=== PATIENT | female | born 1970 | race Caucasian/White ===

== ENCOUNTER → 2020-12-20 09:43 | Outpatient (CLI) | payer OTHER, SELFPAY ==
--- NOTE | ~2020-12-20 | MM_ITS ---
EXAMINATION: MM screening sarahi BI w adina HISTORY: Screening TECHNIQUE: Craniocaudal and mediolateral oblique 3-D tomosynthesis images were obtained and synthetic 2-D images were generated. CAD analysis was submitted and interpreted. COMPARISON: 02/25/2012 BREAST PARENCHYMAL COMPOSITION: There are scattered areas of fibroglandular density. FINDINGS: There is no evidence of suspicious mass, calcification, or architectural distortion to sugg est malignancy in either breast. There has been no suspicious interval change. IMPRESSION: 1. No mammographic evidence of malignancy. 2. Recommend routine screening mammography in one year. BI-RADS Category 1: Negative Reviewed, dictated and finalized at location A.
== END ==
PROVIDERS: PCP Family Medicine Adolescent Medicine; Visit Provider Family Medicine Adolescent Medicine
DX: Z12.31 Encounter for screening mammogram for malignant neoplasm of breast (principal)
CPT/HCPCS: 77063; 77067

== ENCOUNTER 2021-03-22 09:15 | Outpatient (CLI) | payer OTHER, SELFPAY ==
--- NOTE | 2021-03-22 12:00 | NEURO_ITS ---
Impression: # Complains of numbness and pain in hands, left more than right. # Moderated to severe Carpal Tunnel Syndrome, left more than right. # No ulnar neuropathy. # Needle/EMG exam is abnormal in APB bilaterally. Nerve Conduction Studies Anti Sensory Summary Table Stim Site NR Peak (ms) P-T Amp (?V) Site1 Site2 Delta-P (ms) Dist (cm) Javy (m/s) Left Median Anti Sensory (2-3nd Digit) Wrist 5.3 7.9 Wrist 2-3nd Digit 5.3 14.0 26 Wrist 5.4 19.6 Wrist 2-3nd Digit 5.3 14.0 26 Right Median Anti Sensory (2-3nd Digit) NO RESPONSE Wrist NR Wrist 2-3nd Digit 14.0 Wrist NR Wrist 2-3nd Digit 14.0 Left Radial Anti Sensory (Base 1st Digit) Wrist 1.9 27.2 Wrist Base 1st Digit 1.9 0.0 Right Radial Anti Sensory (Base 1st Digit) Wrist 2.1 13.9 Wrist Base 1st Digit 2.1 0.0 Left Ulnar Anti Sensory (5th Digit) Wrist 2.1 77.8 Wrist 5th Digit 2.1 14.0 67 Right Ulnar Anti Sensory (5th Digit) Wrist 2.1 55.9 Wrist 5th Digit 2.1 14.0 67 Motor Summary Table Stim Site NR Onset (ms) O-P Amp (mV) Site1 Site2 Delta-0 (ms) Dist (cm) Javy (m/s) Left Median Motor (Abd Poll Brev) Wrist 6.2 3.9 Elbow Wrist 4.9 29.0 59 Elbow 11.1 3.9 Right Median Motor (Abd Poll Brev) Wrist 5.4 3.2 Elbow Wrist 4.7 27.0 57 Elbow 10.1 3.2 Left Ulnar Motor (Abd Dig Minimi) Wrist 2.1 7.1 A Elbow Wrist 4.7 27.0 57 A Elbow 6.8 6.1 Right Ulnar Motor (Abd Dig Minimi) Wrist 2.1 4.0 A Elbow Wrist 4.7 27.0 57 A Elbow 6.8 3.3 F Wave Studies NR F-Lat (ms) L-R F-Lat (ms) Left Median (Mrkrs) (Abd Poll Brev) 30.59 1.00 Right Median (Mrkrs) (Abd Poll Brev) 29.60 1.00 Left Ulnar (Mrkrs) (Abd Dig Min) 26.37 0.88 Right Ulnar (Mrkrs) (Abd Dig Min) 27.24 0.88 EMG Side Muscle Nerve Root Ins Act Fibs Amp Dur Recrt Comment Right 1stDorInt Ulnar C8-T1 Nml Nml Nml Nml Nml Right Ext Indicis Radial (Post Int) C7-8 Nml Nml Nml Nml Nml Right Ext Digitorum Radial (Post Int) C7-8 Nml Nml Nml Nml Nml Right BrachioRad Radial C5-6 Nml Nml Nml Nml Nml Right PronatorTeres Median C6-7 Nml Nml Nml Nml Nml Right Abd Poll Brev Median C8-T1 Nml Nml Nml >12ms Reduced Left 1stDorInt Ulnar C8-T1 Nml Nml Nml Nml Nml Left Ext Indicis Radial (Post Int) C7-8 Nml Nml Nml Nml Nml Left Ext Digitorum Radial (Post Int) C7-8 Nml Nml Nml Nml Nml Left BrachioRad Radial C5-6 Nml Nml Nml Nml Nml Left PronatorTeres Median C6-7 Nml Nml Nml Nml Nml Left Abd Poll Brev Median C8-T1 Nml Nml Nml >12ms Reduced MTDD
== END 2021-03-22 09:16 | disposition home or self-care (01) ==
PROVIDERS: PCP Family Medicine Adolescent Medicine; Visit Provider Family Medicine Adolescent Medicine
DX: G56.03 Carpal tunnel syndrome, bilateral upper limbs (principal)
CPT/HCPCS: 95886; 95911

== ENCOUNTER 2022-01-04 09:52 | Emergency (ER) | payer OTHER, SELFPAY ==
[2022-01-04] VITALS (16 sets, daily range): BP systolic 114–139; BP diastolic 69–89; PULSE 59–70; RESP 10–19; TEMP 36.8; O2SAT 97–100
--- NOTE | ~2022-01-04 | CT_ITS ---
EXAMINATION: CT brain wo con EXAM DATE: 01/04/2022 10:25 INDICATION: Dizziness. TECHNIQUE: Spiral CT of the head was performed without contrast. Axial, coronal and sagittal images were reviewed. The dose-length product (DLP) for this examination was 605.33 mGy-cm. The exposure w as tailored according to patient size, and iterative reconstruction (ASIR) was used as additional dos e reduction technique. There is no prior study for comparison. FINDINGS: There is no acute intraparenchymal hemorrhage. No evidence of intraparenchymal brain mass lesion. No evidence of acute infarction. There is no mass effect or midline shift. The ventricles are normal in size. There are no extra-axial collections. There are no acute calvarial fractures. T he orbits are unremarkable. Soft tissue is unremarkable. The visualized sinuses and mastoid air sarina ls are well aerated. IMPRESSION: No acute intracranial findings. Reviewed, dictated and finalized at location B.
--- NOTE | ~2022-01-04 | XR_ITS ---
EXAMINATION: XR chest 2V EXAM DATE: 01/04/2022 10:27 INDICATION: Increased SOB. TECHNIQUE: Frontal and lateral projections of the chest obtained and reviewed. Comparison is made to prior examination from 08/21/2018. FINDINGS: The lungs are clear. There are no pleural effusions. The cardiomediastinal silhouette is within normal limits. There is no pneumothorax suspected. The bones and soft tissues are unremarkab le. IMPRESSION: No acute cardiopulmonary findings. Reviewed, dictated and finalized at location B.
--- NOTE | 2022-01-04 10:10 | ECG_ITS ---
Measurements Intervals [place] Rate: 66 P: 50 [place]: 154 QRS: 10 QRSD: 94 T: 46 QT: 427 QTc: 448 Interpretive Statements SINUS RHYTHM BASELINE ARTIFACT NORMAL ECG NO PREVIOUS ECG AVAILABLE FOR COMPARISON Electronically Signed On 01-04-2022 15:44:47 CDT by Hilton Bacon M.D.
--- NOTE | 2022-01-04 10:11 | ED.GENADULT ---
HPI - General Adult General Chief complaint: Shortness of Breath/Dyspnea Stated complaint: htn, dizzy Time Seen by Provider: 01/04/22 09:54 History of Present Illness HPI narrative: 51-year-old female in no distress presents to the emergency room with complaints of dizziness, high blood pressure, shortness of breath. Patient states that she woke up in the middle the night feeling short of breath, use her inhaler twice which resolved her symptoms. Later in the morning, patient was work, and was feeling dizzy and lightheaded. Patient also complaining of sinus congestion postnasal drip frequently clearing her throat. Patient went to the school nurse for her blood pressure was taken twice. Blood pressure readings at that time were 160s/90s. Patient does not have a history of high blood pressure. On presentation to the emergency room, patient is complaining of dizziness and lightheadedness. The breath has since resolved. No other complaints at this time Related Data Home Medications Medication Instructions Recorded Confirmed atorvastatin 40 mg tablet 40 mg PO DAILY 11/01/21 11/01/21 trazodone 50 mg tablet 50 mg PO QHS PRN 11/01/21 11/01/21 Allergies Allergy/AdvReac Type Severity Reaction Status Date / Time clarithromycin Allergy Intermediate Hives Verified 01/04/22 10:04 Penicillins Allergy Mild HIVES Verified 01/04/22 10:04 Review of Systems Review of Systems: CONSTITUTIONAL: Denies fever, chills, or sweats. EYES: Denies visual changes, redness, or discharge. ENT: Denies rhinorrhea, congestion, sore throat, or otalgia. CARDIOVASCULAR: Denies chest pain, palpitations, or edema. RESPIRATORY: Reports shortness of breath GASTROINTESTINAL: Denies abdominal pain, nausea, vomiting, or diarrhea. GENITOURINARY: Denies dysuria or hematuria. SKIN: Denies rash or itching. MUSCULOSKELETAL: Denies back pain, joint pain, or myalgia. NEUROLOGIC: Reports dizziness PSYCHIATRIC: Denies anxiety or depression. PMFSH Surgical History Surgical History History of total left hip arthroplasty 2018 Family History Family History Father Acute myocardial infarction Diabetes mellitus Exam Narrative: GENERAL: Well-appearing, well-nourished, obese and in no acute distress. HEAD: Normocephalic, atraumatic. EYES: PERRLA and EOMI. ENT: Nares clear, no rhinorrhea or epistaxis. Mucous membranes moist. CHEST: Clear to auscultation. No respiratory distress. No wheezes rales or rhonchi HEART: Regular rate and rhythm. No murmur heard. Normal peripheral pulses. ABDOMEN: Soft, nontender, nondistended, normal active bowel sounds. EXTREMITIES: Normal range of motion. No edema. SKIN: Warm, dry, no rash. NEURO: No focal deficits. Alert and oriented x3. PSYCH: Normal mood and affect. Course Vital Signs Vital signs: Vital Signs Temperature 36.8 C 01/04/22 09:57 Pulse Rate 69 01/04/22 09:57 Respiratory Rate 12 01/04/22 09:57 Blood Pressure 139/89 01/04/22 09:57 Pulse Oximetry 100 01/04/22 09:57 Temperature 36.8 C 01/04/22 09:57 Pulse Rate 67 01/04/22 10:30 Respiratory Rate 13 01/04/22 10:30 Blood Pressure 130/82 01/04/22 10:01 Pulse Oximetry 99 01/04/22 10:30 Medical Decision Making [facility] Narrative Medical decision making narrative: 51-year-old female presented the emergency room cute onset of shortness of breath this morning associated with sinus congestion postnasal drip and dizziness. Head CT was negative for any intracranial abnormalities. CBC and CMP unremarkable. Troponin was negative D-dimer negative. Chest x-ray was negative for any acute disease. Patient is likely experiencing dizziness from sinus congestion and a viral URI. Encourage patient to continue taking her albuterol inhaler obtaining some pseudoephedrine pharmacy and resuming her Flonase. Medical Records Medical records review
--- NOTE | 2022-01-04 10:20 | PC.NURSE ---
Patient off unit to radiology for chests xray.
[2022-01-04 10:27] LABS: Basophils Absolute Auto 0.1 K/mm3 (0.0-0.1); Basophils Percent Auto 0.4 % (0.2-1.2); Eosinophils Absolute Auto 0.3 K/mm3 (0-0.3); Eosinophils Percent Auto 2.3 % (0-4.4); Hematocrit 44.2 % (37.0-47.0); Hemoglobin 14.8 g/dL (12.0-15.0); Immature Granulocyte Absolute 0.04 K/mm3 (0.00-0.031); Immature Granulocyte Percent A 0.4 % (0-0.5); Lymphocytes Absolute Auto 3.49 K/mm3 (0.9-3.2); Lymphocytes Percent Auto 31.4 % (18.3-44.2); Mean Corpuscular HGB Conc 33.5 g/dl (32-36); Mean Corpuscular Hemoglobin 31.8 pg (26-34); Mean Corpuscular Volume 95.1 fl (80-100); Mean Platelet Volume 9.1 fl (7.4-10.4); Monocytes Absolute Auto 0.5 K/mm3 (0.1-0.6); Monocytes Percent Auto 4.5 % (2.6-8.5); Neutrophils Absolute Auto 6.8 K/mm3 (1.3-6.7); Platelet Count Result 310 k/mm3 (150-375); Red Blood Count 4.65 M/mm3 (4.2-5.4); Red Cell Distribution Width 12.5 % (11.5-14.5); White Blood Count 11.1 K/mm3 (4.5-10.0)
[2022-01-04 10:39] LABS: Alanine Aminotransferase 57 U/L (4-35); Albumin Level 4.5 g/dL (3.5-5.1); Alkaline Phosphatase 118 U/L (38-126); Anion Gap 12 mmol/L (8-16); Aspartate Amino Transferase 64 U/L (14-36); Bilirubin,Total 0.7 mg/dL (0.2-1.3); Blood Urea Nitrogen 12 mg/dL (7-17); Calcium 8.9 mg/dL (8.4-10.2); Carbon Dioxide 24 mmol/L (22-30); Chloride 103 mmol/L (98-107); Estimated CRCL calculation 115 ml/min; Estimated Glomerular Filt Rate > 60; Glucose 178 mg/dL (65-110); Potassium 3.9 mmol/L (3.4-5.0); Sodium 139 mmol/L (137-145)
[2022-01-04] MEDS: SODIUM CHLORIDE 0.9% IV 500 ML 999 ML IV CONT (10:45)
[2022-01-04] MEDS: ONDANSETRON INJ 4 MG/2 ML VIAL IV PUSH (10:45)
[2022-01-04 10:46] LABS: D Dimer 0.27 ug/mL (<0.48)
[2022-01-04 10:50] LABS: Troponin I < 0.012 ng/mL (0.000-0.034)
== END 2022-01-04 12:24 | disposition home or self-care (01) ==
PROVIDERS: Emergency Provider Nurse Practitioner Family; PCP Family Medicine Adolescent Medicine
DX: B34.9 Viral infection, unspecified (principal); R42 Dizziness and giddiness; Z96.642 Presence of left artificial hip joint
CPT/HCPCS: 36415; 70450; 71046; 80053; 84484; 85025; 85380; 93005; 96361; 96374; 99284; J2405; J7040

== ENCOUNTER 2022-04-04 07:56 | Outpatient (RCR) | payer OTHER, SELFPAY ==
[2022-04-04 08:03] VITALS: BMI 35.2
[2022-04-04 08:10] VITALS: BMI 35.2
== END 2022-05-31 14:22 | disposition home or self-care (01) ==
LOC: ANHDMC 07:56
PROVIDERS: PCP Family Medicine Adolescent Medicine; Visit Provider Family Medicine Adolescent Medicine
DX: E11.9 Type 2 diabetes mellitus without complications (principal); Z71.3 Dietary counseling and surveillance
CPT/HCPCS: 97802

== ENCOUNTER 2023-03-19 09:47 | Outpatient (CLI) | payer OTHER, SELFPAY ==
--- NOTE | ~2023-03-19 | XR_ITS ---
XR hip LT min 2V 03/19/2023 10:17 Indication: Left hip pain Procedure: 2 views left hip Comparison: 02/10/2018 Findings: There are changes of left total hip arthroplasty. Prosthesis well seated. There has been in terval development of exuberant heterotopic ossification lateral to the hip above the greater trochan ter. No acute fracture or traumatic malalignment. 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 Reviewed, dictated and finalized at location L. Impression: 1: Interval development of exuberant heterotopic ossification lateral to the hi p.
--- NOTE | ~2023-03-19 | XR_ITS ---
XR knee LT 3V 03/19/2023 10:17 Indication: Left knee pain Procedure: 3 views left knee Comparison: No prior studies for comparison. Findings: No fracture, subluxation or dislocation. No significant joint effusion. Mild patellofemoral compartment osteoarthritis. No foreign bodies. Impression: 1: Mild patellofemoral osteoarthritis of the left knee. Reviewed, dictated and finalized at location L. Impression: 1: Mild patellofemoral osteoarthritis of the left knee.
== END 2023-03-19 09:48 | disposition home or self-care (01) ==
PROVIDERS: PCP Family Medicine Adolescent Medicine; Visit Provider Nurse Practitioner Family
DX: G89.29 Other chronic pain (principal); M25.552 Pain in left hip; M17.12 Unilateral primary osteoarthritis, left knee
CPT/HCPCS: 73502; 73562

== ENCOUNTER 2025-07-07 14:11 | Outpatient (CLI) | payer OTHER, SELFPAY ==
--- OUTSIDE RECORDS SUMMARY | 2025-07-07 14:17 | XMS_ITS | Clinical Summary ---
Author Organization [facility] Address [address] Attn: Epic Prelude ADT [place] [address] Care Team Providers Care Supervisor [employer] Name Role Phone Unavailable Primary Care Provider Unavailabl e Medications liraglutide, weight loss, (Saxenda) 3 mg/0.5 mL (18 mg/3 mL) Pen Injector INJECT 0.6 MG UNDER THE SKIN ONCE DAILY ON WEEK 1, THEN 1.2 MG DAILY ON WEEK 2, THEN 1.8 MG DAILY ON WEEK 3, THEN 2.4 MG DAILY ON WEEK 4, THEN 3MG UNDER THE SKIN ONCE DAILY THEREAFTER 15 mL 2 01/12/20 23 Active doxycycline hyclate (VIBRAMYCIN) 100 mg capsule TAKE 1 TABLET BY MOUTH BEFORE DENTAL PROCEDURE. 1 Capsule 3 1:26 PM CDT 06/18/20 23 Active promethazine (PHENERGAN) 25 mg tablet Take 1 Tablet (25 mg) by mouth every 6 hours as needed for nausea and vomiting 20 Tablet 3 3:57 PM BOX CUTTER 09/18/20 23 Active venlafaxine (EFFEXOR XR) 75 mg Extended Release 24 hour capsule Take 1 Capsule (75 mg) by mouth daily. 90 Capsule 1 4 11:01 AM CDT 03/10/20 24 Active semaglutide, weight loss, (Wegovy) 0.25 mg/0.5 mL Pen Injector Inject 0.5 mL (0.25 mg) by subcutaneous injection every 7 days. Weeks 1-4 of therapy. 2 mL 06/18/20 24 Active semaglutide, weight loss, (Wegovy) 0.5 mg/0.5 mL Pen Injector Inject 0.5 mL (0.5 mg) by subcutaneous injection every 7 days. Weeks 5-8 of therapy. 2 mL 4 6:36 PM CDT 06/18/20 24 Active albuterol sulfate HFA 90 mcg/actuation aerosol inhaler Inhale 2 puffs by mouth every 4 (four) hours as needed for wheezing or shortness of breath 8.5 Gram 4 11:31 AM BOX CUTTER 08/23/20 24 Active azithromycin (ZITHROMAX) 250 mg tablet TAKE 2 TABLETS (500 MG) BY MOUTH A SINGLE DOSE ON DAY 1, THEN TAKE 1 TABLET ONCE DAILY ON DAYS 2 THRU 5. 6 Tablet 5 2:24 PM BOX CUTTER 11/25/19 25 Active benzonatate (TESSALON) 100 mg capsule Take 1 capsule 3 times a day by oral route as needed for 10 days, for cough. 30 Capsule 11/25/19 25 Active methylPREDNIS olone (MEDROL DOSPACK) 4 mg Tablets, Dose Pack Take as directed on package. 21 Tablet 5 6:09 PM CDT 06/18/20 25 Active predniSONE (DELTASONE) 20 mg tablet Take 60mg daily for 5 days, then take 40mg daily for 5 days, then take 20mg daily for 5 days orally; 30 Tablet 5 3:30 PM CDT 06/25/20 25 Active azithromycin (ZITHROMAX) 250 mg tablet TAKE 2 TABLETS BY MOUTH A SINGLE DOSE ON DAY 1, THEN TAKE 1 TABLET ONCE DAILY ON DAYS 2 THRU 5. 6 Tablet 4 11:31 AM BOX CUTTER 08/23/20 24 025 Discontinued doxycycline hyclate (VIBRAMYCIN) 100 mg capsule Take 1 Capsule (100 mg) by mouth 2 times daily with meals for 7 days. 14 Capsule 5 11:46 AM CDT 06/12/20 25 025 azithromycin (ZITHROMAX) 250 mg tablet TAKE 2 TABLETS BY MOUTH A SINGLE DOSE ON DAY 1, THEN TAKE 1 TABLET ONCE DAILY ON DAYS 2 THRU 5. 6 Tablet 06/18/20 25 025 Discontinued(F ormulary Change) clindamycin HCL (CLEOCIN) 300 mg Capsule Take 1 capsule (300 mg total) by mouth every 6 (six) hours for 10 days 40 Capsule 5 6:09 PM CDT 06/18/20 25 025 Social History Tobacco Use Types Packs/Day Years Used Date Smoking Tobacco: Never Assessed Comments Unknown Sex and Gender Information Value Date Recorded Sex Assigned at Not on file Legal Sex Female 3:27 PM CDT Gender Identity Not on file Sexual Orientation Not on file Plan of Treatment Health Maintenance Due Date Last Done Comments DTAP/TDAP/TD VACCINES (1 - Tdap) 02/22/1991 HEPATITIS B VACCINES (1 of 3 - 19+ 3-dose series) 02/04 HPV/Cotest (21-29) 02/22/1993 CERVICAL CANCER SCREENING 02/22/2002 HPV/Cotest (30-65) 02/22/2002 PAP SMEAR 02/22/2002 BREAST CANCER SCREENING 2012 COLORECTAL SCREENING 02/22/2017 Colorectal Cancer Screening 02/22/2017 FIT-DNA Q 3 years 02/22/2017 FIT/FOBT Q 1 year 02/22/2017 Flex Sig/CT Colonography Q 5 years 02/22/2017 ZOSTER VACCINE (1 of 2) 02/22/2022 INFLUENZA VACCINE (#1) 2025 Insurance RX [employer] RX [employer] Commercial RX [employer] (INTERNAL) [facility] Internal Plans RX [employer] Commercial
--- OUTSIDE RECORDS SUMMARY | 2025-07-07 14:17 | XMS_ITS | Clinical Summary ---
Author Organization [address] lto Address [address] [place] [address] Care Team Providers Care Sandwich Peddler Name Role Phone Hola Kaufman MD Primary Care Prov ider Allergies Active Allergy Reactions Criticality Noted Date Comments Penicillins Unknown 07/18/2023 Medications estradioL (ESTRACE) 1 mg tablet Take 1 tablet (1 mg total) by mouth daily Active traZODone (DESYREL) 50 mg tablet Take 1 tablet (50 mg total) by mouth nightly Active venlafaxine XR (EFFEXOR-XR) 75 mg 24 hr capsule Take 1 capsule (75 mg total) by mouth daily Active ascorbic acid (vitamin C) 100 mg tablet Take 1 tablet (100 mg total) by mouth daily Active calcium carbonate-vitam in D3 1500 mg (600 mg elemental) -200 units per tablet Take 1 tablet by mouth daily Active benzonatate (TESSALON) 100 mg capsuleIndicati ons:Cough Take 1 capsule (100 mg total) by mouth 3 (three) times a day as needed for cough 42 capsule 07/18/20 23 Active Additional Information Patient not taking.Reported on 06/18/2025 albuterol HFA (PROVENTIL HFA,VENTOLIN HFA,PROAIR HFA) 90 mcg/actuation inhalerIndicati ons:Upper respiratory tract infection, unspecified type Inhale 2 puffs every 4 (four) hours as needed for wheezing or shortness of breath 1 each 08/23/20 24 Active azithromycin (ZITHROMAX) 250 mg tabletIndicatio ns:Upper respiratory tract infection, unspecified type Take two tabs first day, then one tab daily x 4 days 6 tablet 08/23/20 24 025 Discontinu ed(Therapy completed) azithromycin (ZITHROMAX) 250 mg tabletIndicatio ns:otitis media Take 2 tablets the first day, then 1 tablet daily for 4 days. 6 tablet 06/18/20 25 025 Discontinu ed(Error) methylPREDNISol one (MEDROL DOSEPACK) 4 mg Dosepack Take as directed on package. 21 tablet 06/18/20 25 025 clindamycin (CLEOCIN) 300 mg capsule Take 1 capsule (300 mg total) by mouth every 6 (six) hours for 10 days 40 capsule 06/18/20 25 025 Active Problems No known active problems Encounters Date Type Department Care Team Description 06/18/2025 5:00 PM CDT Office Visit [facility] [address] [place] [address] Dora Davidson NP Non-recurrent acute suppurative otitis media of left ear without spontaneous rupture of tympanic membrane (Primary Dx) from Last 3 Months Social History Tobacco Use Types Packs/Day Years Used Date Smoking Tobacco: Never Assessed Comments No Sex and Gender Information Value Date Recorded Sex Assigned at Not on file Legal Sex Female 1:14 PM [employer]ER [employer] T[employer]ER Gender Identity Not on file Sexual Orientation Not on file Obstetrics History Last Filed Vital Signs Vital Sign Reading Time Taken Comments Blood Pressure 118/74 06/18/2025 5:00 PM CDT Pulse 76 06/18/2025 5:00 PM CDT Temperature 36.3 C (97.3 F) 06/18/2025 5:00 PM CDT Respiratory Rate 14 06/18/2025 5:00 PM CDT Oxygen Saturation 99% 06/18/2025 5:00 PM CDT Inhaled Oxygen Concentration - - Weight 88.9 kg (196 lb) 06/18/2025 5:00 PM CDT Height 170.2 cm (5' 7) 06/18/2025 5:00 PM CDT Body Mass Index 30.7 06/18/2025 5:00 PM CDT Plan of Treatment Health Maintenance Due Date Last Done Comments Breast Cancer Screening-Mammogram 1972 Colon Cancer Screening-Colonoscopy 1972 Depression Screening 1972 Hepatitis C Screening 1972 Hepatitis B Screening 02/22/1990 Regular Well Visit/Exam 18-64 02/22/1990 DTaP/Tdap/Td Vaccine (1 - Tdap) 02/02/1997 7 Zoster Vaccine (1 of 2) 02/22/2022 Influenza Vaccine (#1) 2025 Pneumococcal vaccine <65 Aged Out No longer eligible based on patient's age to complete this topic Insurance [employer] Member Subscriber Plan / Payer (Ef fective 2024-Present) Name:Brooke Penn Relation to Subscriber:Self Name:Brooke Penn Payer ID:[id number] (NAIC) Type:[employer] H[employer]/PPO Address: [place] [phone] Care Teams Sandwich Peddler Relationship Specialty Start Date End Date Hola Kaufman MD PCP - General 11/20/17
== END 2025-07-07 14:12 | disposition home or self-care (01) ==
LOC: ANHAUDIO 14:11
PROVIDERS: PCP Family Medicine Adolescent Medicine; Visit Provider Otolaryngology
DX: H66.92 Otitis media, unspecified, left ear (principal)
CPT/HCPCS: 92557; 92567

== ENCOUNTER 2025-07-21 15:36 | Outpatient (CLI) | payer OTHER, SELFPAY ==
--- NOTE | ~2025-07-21 | CT_ITS ---
EXAMINATION: CT IAC/mastoids BI wo con DATE: 07/21/2025 16:05 INDICATION: Otitis media, unspecified, left ear. TECHNIQUE: Computed tomography (CT) of the temporal bones was performed without intravenous contrast. Automated exposure control and iterative reconstruction technique were employed. The dose-length product was 223.60 mGy-cm. COMPARISON: Head CT 01/04/2022 FINDINGS: RIGHT TEMPORAL BONE: The internal auditory canal, cochlea, vestibule, semicircular canals, vestibular aqueduct, carotid canal, jugular bulb, facial nerve course, ossicles, Prussak space, scutum, tympanic membrane, external auditory canal, and mastoid air cells are normal. LEFT TEMPORAL BONE: The internal auditory canal, cochlea, vestibule, semicircular canals, vestibular aqueduct, facial nerve course, and ossicles are normal. There is a left otomastoid effusion including a small volume of material in Prussak space. No erosions of bone are identified. Scutum is normal. There is thickening of the tympanic membrane. There is a myringotomy tube. The external auditory canal is normal. IMPRESSION: 1. Left otomastoid effusion. Myringotomy tube in expected position. Reviewed, dictated and finalized at location E.
== END 2025-07-21 15:37 | disposition home or self-care (01) ==
PROVIDERS: PCP Family Medicine Adolescent Medicine; Visit Provider Otolaryngology
DX: H74.8X2 Other specified disorders of left middle ear and mastoid (principal); Z96.22 Myringotomy tube(s) status
CPT/HCPCS: 70480